=== PATIENT | male | born 1995 | race African-American/Black ===

== ENCOUNTER 2020-12-10 14:08 | Emergency (ER) | payer OTHER ==
[~2020-12-10] VITALS: Ht 172.7 cm; Wt 80.9 kg
[2020-12-10 16:09] LABS: HEMOGLOBIN 13.3 g/dl (13.5-17.5); MEAN CORPUSCULAR HEMOGLOBIN 27.7 pg (27.0-33.0); MEAN CORPUSCULAR HGB CONC 33.3 g/dl (32.0-36.5); MEAN CORPUSCULAR VOLUME 83.3 fl (80.0-96.0); PLATELET COUNT, AUTOMATED 271 10^3/uL (150-450); WHITE BLOOD COUNT 6.8 10^3/uL (4.0-10.0)
[2020-12-10 16:42] LABS: ACETAMINOPHEN LEVEL < 2.0 UG/ML (10.0-30.0); ALBUMIN 4.1 GM/DL (3.2-5.2); ALT/SGPT 39 U/L (12-78); BILIRUBIN,DIRECT < 0.1 MG/DL (0.0-0.2); BILIRUBIN,TOTAL 0.2 MG/DL (0.2-1.0); BLOOD UREA NITROGEN 13 MG/DL (7-18); CARBON DIOXIDE LEVEL 25 MEQ/L (21-32); CHLORIDE LEVEL 110 MEQ/L (98-107); CREATININE FOR GFR 0.86 MG/DL (0.70-1.30); ETHYL ALCOHOL (ETHANOL) < 0.003 % (0.000-0.010); GLOMERULAR FILTRATION RATE > 60.0 (>60); GLUCOSE, FASTING 92 MG/DL (70-100); POTASSIUM SERUM 4.3 MEQ/L (3.5-5.1); SALICYLATE LEVEL < 1.7 MG/DL (5.0-30.0); SODIUM LEVEL 141 MEQ/L (136-145); TOTAL PROTEIN 7.5 GM/DL (6.4-8.2)
[2020-12-10 18:01] LABS: AMPHETAMINES LEVEL URINE NEGATIVE (NEGATIVE); BARBITURATES URINE NEGATIVE (NEGATIVE); BENZODIAZEPINES URINE NEGATIVE (NEGATIVE); CANNABINOIDS URINE POSITIVE (NEGATIVE); COCAINE METABOLITE URINE NEGATIVE (NEGATIVE); METHADONE URINE NEGATIVE (NEGATIVE); OPIATES URINE NEGATIVE (NEGATIVE); PHENCYCLIDINE URINE NEGATIVE (NEGATIVE)
[2020-12-11 01:24] LABS: RSV AMPLIFICATION NEGATIVE (NEGATIVE)
[2020-12-11 04:10] VITALS: BP 122/55
--- NOTE | 2020-12-11 18:55 | ECGEPIP ---
[facility] - ED Test Date: 2020-12-11 Pat Name: EVARISTO CROWLEY Department: Room: - Gender: Male Handy Worker: Leny : 1995 Requested By: FAUSTINO Rossi Order Number: [id number] Reading MD: La Nena Aaron Measurements Intervals [place] Rate: 57 P: 68 [place]: 218 QRS: 75 QRSD: 88 T: 38 QT: 398 QTc: 387 Interpretive Statements Sinus bradycardia with marked sinus arrhythmia with 1st degree AV block early repolarization no prior Electronically Signed on 12-11-2020 18:54:38 EDT by La Nena Aaron
== END 2020-12-11 04:18 ==
LOC: M ED 14:08
DX: R45.851 Suicidal ideations (principal)

== ENCOUNTER 2021-06-06 00:05 | Emergency (ER) | payer OTHER ==
[~2021-06-06] VITALS: Ht 172.7 cm; Wt 80.2 kg
[2021-06-06 00:15] VITALS: BP 133/84
== END 2021-06-06 03:43 | disposition home or self-care (01) ==
LOC: M ED 00:05
DX: F33.9 Major depressive disorder, recurrent, unspecified (principal)